=== PATIENT | male | born 1985 | race Caucasian/White ===

== ENCOUNTER 2025-01-22 23:12 | Emergency (ER) | payer MEDICAID, OTHER ==
[~2025-01-22] VITALS: Ht 165.1 cm; Wt 68.2 kg
[~2025-01-22 23:12] MED LIST: ARIP5TAB11; BEN2I; CLON-857; DIVA-93; IBUP100T3; LORA5TAB17; RISP2TAB31; TOPI100T29
[2025-01-22 23:26] VITALS: BP 128/95; PULSE 68; RESP 18; O2SAT 98
--- NOTE | 2025-01-22 23:32 | ED.PDOC ---
Eye-HPI HPI Comments HPI: Poor Historian. 39-year-old male brought in by ambulance from a retirement for evaluation of sore throat. Patient requested milk at the facility and they refused to give it to him so he called 911 and said he is 5150. Patient states he is not homicidal or suicidal. Patient denies any hallucinations. He said the he stated he would rather be on 5150 hold then to be at the facility. Patient has been in group homes all his life for history of developmental delay. Patient prefers to live in the streets. Patient is requesting to leave immediately and go to the streets. It is unclear who has guardianship or [id number] over this patient. Past Medical History: Mild intellectual disability, diabetes, pancreatitis, asthma, IBS, glaucoma, seizures, Past Surgical History: Unknown REVIEW OF SYSTEMS: CONSTITUTIONAL: Denies acute: fever, diaphoresis, chills, HEAD: Denies acute: headache, photophobia Eyes: Denies acute: Double vision, vision loss, eye pain, eye discharge. EARS: Denies acute: tinnitus, hearing loss, ear discharge, ear pain, THROAT: Denies acute: swelling, difficulty swallowing , pain with swallowing, change in voice. NECK: Denies acute: neck pain, neck swelling, stiff neck. HEART: Denies acute : chest pain, palpitations, LUNGS: Denies acute: SOB, wheezing, cough, hemoptysis ABDOMEN: Denies acute: abdominal pain, Nausea, Vomiting, diarrhea, melena , hematemesis, hematochezia SKIN: Denies acute: rash, redness, lesions, itchiness. EXTREMITIES: Denies acute: calf pain, numbness, tingling, weakness, denies pain in extremity. Denies acute: Low back pain. Neuro: Denies acute: focal neurological deficit, motor or sensory focal neurological deficit, tremors, seizure like activity, confusion, dizziness, change in mental status, loss of bowel or bladder function, cauda equina like symptoms. : Denies acute: dysuria, hematuria, flank pain, increase in urinary frequency. PSYCH: Denies acute: hallucination, suicidal ideation, homicidal ideation. PHYSICAL EXAM: General: no acute distress, awake and alert. Head: normocephalic, atraumatic. Neck: supple, trachea is midline, no swelling. Throat: Normal phonation. No erythema, no exudates, no obstruction, no swel ling Eyes:, no erythema, no purulent discharge, no proptosis, no icterus. Heart: regular rate, regular rhythm, no significant murmur appreciated. Lungs: no apparent respiratory distress, Able to speak in full sentences. No wheezing, no rhonchi, no crackles. No stridors Clear to auscultation bilaterally. Abdomen: non tender to palpation, non distended, soft, no guarding, no rebound, + bowel sounds. Neuro: Awake, Alert, oriented to name, self, situation, follows commands GCS=15. Speech is normal. Skin: no petechia, no purpura, no cyanosis, non-pale, not jaundice. Lower extremities: --no - Pitting edema no deformity, no focal swelling, no calf TTP. Makes eye contact. moves all four extremities. Face: no apparent facial droop. Ambulating in the ED independently. ED COURSE: Chief Complaint: Sore Throat Time Seen by MD: 23:29 Reviewed Notes: Nurses Notes, Allergies Allergies: Coded Allergies: NO KNOWN ALLERGIES (Unverified , 06/19/10) Home Meds Reported Medications Benztropine Mesylate (Cogentin) 2 Mg/2 Ml Ij 06/19/10 Ibuprofen (Sm Ibuprofen Jr) 100 Mg Tab 06/19/10 Divalproex Sodium (Depakote Er) 500 Mg Tab 06/19/10 Risperidone (Risperdal M-Tab) 2 Mg Tab 06/19/10 Clonazepam (Clonazepam) 2 Mg Tab 06/19/10 Aripiprazole (Abilify) 5 Mg Tab 06/19/10 Topiramate (Topamax) 100 Mg Tab 06/19/10 Loratadine (Claritin Reditabs) 5 Mg Tab 06/19/10 Information Source: Patient, Emergency Med Personnel Was a procedure done? Was a procedure done?: No EENT DIFF Eye: N/A Ear: N/A Nose: N/A Sore Throat: Epiglottitis, Hand Foot Mouth Disease, Herpangina, Herpetic Stomatitis, Mononeucleosis, Varghese's Angina, Peritonsillar Abscess, Peritonsillar Cellulitis, Pharyngitis, Diptheria, Streptococcal, Viral Pharyngitis, URI X-Ray, Labs, Meds, VS Vital Signs Date Time Temp Pulse Resp B/P (MAP) Pulse Ox O2 Delivery O2 Flow Rate FiO2 01/22/25 23:26 97.5 68 18 128/95 (106) 98 Lab Test 01/23/25 00:20 Range/Units White Blood Count 7.5 4.4-10.8 10^3/uL Red Blood Count 4.37 L 4.5-5.90 10^6/uL Hemoglobin 13.5 13.5-17.5 g/dL Hematocrit 40.2 L 41.0-53.0 % Mean Corpuscular Volume 91.9 80.0-100.0 fL Mean Corpuscular Hemoglobin 30.9 28.0-32.0 pg Mean Corpuscular Hemoglobin Concent 33.6 32.0-36.0 g/dL Red Cell Distribution Width 13.5 11.8-14.3 % Platelet Count 168 140-450 10^3/uL Mean Platelet Volume 8.4 6.9-10.8 fL Neutrophils (%) (Auto) 39.4 37.0-80.0 % Lymphocytes (%) (Auto) 47.7 10.0-50.0 % Monocytes (%) (Auto) 7.2 0.0-12.0 % Eosinophils (%) (Auto) 5.0 0.0-7.0 % Basophils (%) (Auto) 0.7 0.0-2.0 % Neutrophils # (Auto) 3.0 1.6-8.6 10 ^3/uL Lymphocytes # (Auto) 3.6 0.4-5.4 10 ^3/uL Monocytes # (Auto) 0.5 0-1.3 10 ^3/uL Eosinophils # (Auto) 0.4 0-0.8 10 ^3/uL Basophils # (Auto) 0.1 0-0.2 10 ^3/uL Nucleated Red Blood Cells 0.1 % Sodium Level 136 136-145 mmol/L Potassium Level 3.8 3.5-5.1 mmol/L Chloride Level 99 98-107 mmol/L Carbon Dioxide Level 30 20-31 mmol/L Anion Gap 7 5-15 Blood Urea Nitrogen 6 L 9-23 mg/dL Creatinine 0.91 0.700-1.30 mg/dL Glomerular Filtration Rate Calc 110 >90 mL/min BUN/Creatinine Ratio 6.6 L 10.0-20.0 Serum Glucose 164 H 74-106 mg/dL Lactic Acid Level 1.0 0.4-2.0 mmol/L Calcium Level 10.3 8.7-10.4 mg/dL Total Bilirubin 0.5 0.2-1.0 mg/dL Aspartate Amino Transferase (AST) 14 13-40 U/L Alanine Aminotransferase (ALT) 39 7-40 U/L Alkaline Phosphatase 77 46-116 U/L Total Protein 6.4 5.7-8.2 g/dL Albumin 4.6 3.2-4.8 g/dL Time of 1ST Reevaluation: 02:55 Reevaluation 1ST: Resolved Patient Education/Counseling: Diagnosis, Treatment Family Education/Counseling: No Family Present Comments Patient presented with the above HPI.---sore throat---workup was initiated. patient was found with the above mentioned diagnosis. the following medications were ordered: please refer to order lists of meds and tests obtained by myself Dr. Casillas. Patient ED course and VS have been stabilized. Patient has been reassessed in the ED and remained in a stable condition. Patient has been observed in the ED adequate length of time to insure improvement/stability. Escalation of care considered: Consideration of escalation to observation or admission Patient is awaiting social service consult in the morning. The care of this patient was transitioned to Dr. Griggs. Patient was reassessed he is currently asleep and comfortable in no acute distress. Patient denies any homicidal suicidal ideation or hallucinations. We attempted to reach the family members at the phone numbers and they did not answer. We contacted the facility and they said that the patient must be placed in a facility because he is unable to care for himself due to his cognitive/developmental delay. Patient is tolerating p.o. intake well. All the reports of any imaging studies that were ordered by myself were reviewed by myself. Departure 1 Departure Time of Disposition: 01:14 Impression: Primary Impression: Sore throat Disposition: 01 HOME / SELF CARE / HOMELESS Condition: Stable Additional Instructions: Additional discharge instructions: You MUST follow-up with your primary care/family doctor in 1 to 2 days. If you are unable to see your primary care/family doctor, please return to our emergency room for re-assessment and re-evaluation in 1 to 2 days. Return to the emergency room here in our facility or to the nearest ER [facility] if your symptoms change or worsen. CONSULTATIONS: you MUST Follow-up for consultation as soon as possible with: psychiatry and therapist in 1-2 days. Please call for appointment You MUST call the consultants office yourself to make an appointment. You may need to arrange that through your insurance and/or your primary/family doctor. If you are unable to see the professional services consultant in 1 to 2 days, you must return to our emergency room (or any other ER of your choice) for re-assessment and re-evaluat ion. Adequate fluid hydration. Discharged With: Self Critical Care Note Critical Care Time?: No MADELAINE CASILLAS DO Jan 22, 2025 23:32
[2025-01-23 00:34] LABS: Basophils # (auto) 0.1 10 ^3/uL (0-0.2); Basophils % (auto) 0.7 % (0.0-2.0); Eosinophils # (auto) 0.4 10 ^3/uL (0-0.8); Hematocrit 40.2 % (41.0-53.0); Hemoglobin 13.5 g/dL (13.5-17.5); Lymphocytes # (auto) 3.6 10 ^3/uL (0.4-5.4); Lymphocytes % (auto) 47.7 % (10.0-50.0); Mean Corpuscular Hemoglobin 30.9 pg (28.0-32.0); Mean Corpuscular Hgb Conc. 33.6 g/dL (32.0-36.0); Mean Corpuscular Volume 91.9 fL (80.0-100.0); Monocytes # (auto) 0.5 10 ^3/uL (0-1.3); Monocytes % (auto) 7.2 % (0.0-12.0); Neutrophils % (auto) 39.4 % (37.0-80.0); Nucleated Red Blood Cells % 0.1 %; Platelet Count (auto) 168 10^3/uL (140-450); Red Blood Cells 4.37 10^6/uL (4.5-5.90); Red Cell Distribution Width 13.5 % (11.8-14.3); White Blood Cell 7.5 10^3/uL (4.4-10.8)
[2025-01-23 00:51] LABS: Alanine Aminotransferase 39 U/L (7-40); Albumin 4.6 g/dL (3.2-4.8); Alkaline Phosphatase 77 U/L (46-116); Anion Gap 7 (5-15); Aspartate Aminotransferase 14 U/L (13-40); BUN/Creatinine Ratio 6.6 (10.0-20.0); Blood Urea Nitrogen 6 mg/dL (9-23); Calcium 10.3 mg/dL (8.7-10.4); Carbon Dioxide 30 mmol/L (20-31); Chloride 99 mmol/L (98-107); Glucose 164 mg/dL (74-106); Potassium 3.8 mmol/L (3.5-5.1); Sodium 136 mmol/L (136-145)
[2025-01-23 00:52] LABS: Bilirubin, Total 0.5 mg/dL (0.2-1.0); Total Protein 6.4 g/dL (5.7-8.2)
== END 2025-01-23 05:58 | disposition home or self-care (01) ==
LOC: EDBD 23:12 → ER 23:12
DX: J02.9 Acute pharyngitis, unspecified (principal); E11.9 Type 2 diabetes mellitus without complications; J45.909 Unspecified asthma, uncomplicated; F70 Mild intellectual disabilities; Z79.899 Other long term (current) drug therapy
CPT/HCPCS: 36415; 80053; 82947; 83605; 85025

== ENCOUNTER 2025-01-23 13:38 | Emergency (ER) | payer MEDICAID ==
[~2025-01-23] VITALS: Ht 170.2 cm; Wt 73.0 kg
--- NOTE | 2025-01-23 14:09 | ED.PDOC ---
History of Present Illness HPI Comments 39 y/o M, with a history of chronic pancreatitis, DM, bipolar disorder, and schizophrenia, is BIBA for c/o ALOC, today. Per EMS report, bystanders called on patient's behalf after finding him in his current altered state, wandering outside a [employer] parking lot, after being discharged from [facility] ED at around 0700, this morning. He was noted to have been found A&Ox1 and with a blood glucose of 467 on scene. All other vitals were commented to have been stable and within normal limits. Per [facility] ED physician not on 01/22/25, patient has an additional history of mild intellectual disability, pancreatitis, asthma, IBS, glaucoma, seizures and was seen, initially, for c/o sore throat after calling 911 following endorsement call from the senior care he resides in. At time of assessment, patient is a poor historian and admits to residing in a senior care and complains of a headache, currently, due to walking all day, today. He denies any polyphagia, polydipsia, polyuria, weakness, fever, or other associated symptoms at this time. 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 Time Seen by MD: 13:45 Reviewed Notes: Nurses Notes, Tucking Machine Operator Notes, Medications, Allergies Allergies: Coded Allergies: NO KNOWN ALLERGIES (Unverified , 06/19/10) Home Meds Reported Medications Benztropine Mesylate (Cogentin) 2 Mg/2 Ml Ij 06/19/10 Ibuprofen (Sm Ibuprofen Jr) 100 Mg Tab 06/19/10 Divalproex Sodium (Depakote Er) 500 Mg Tab 06/19/10 Risperidone (Risperdal M-Tab) 2 Mg Tab 06/19/10 Clonazepam (Clonazepam) 2 Mg Tab 06/19/10 Aripiprazole (Abilify) 5 Mg Tab 06/19/10 Topiramate (Topamax) 100 Mg Tab 06/19/10 Loratadine (Claritin Reditabs) 5 Mg Tab 06/19/10 Information Source: Patient, Emergency Med Personnel, [facility] Medical Record Mode of Arrival: EMS Severity: Moderate Timing: Hours Duration: Since onset Prehospital treatment: 12 Lead EKG, Accucheck, Biometrics Analyst Past Medical History PAST MEDICAL HISTORY: Asthma, DM, Kidney Stones, Schizophrenia Past Medical History (Other): mild intellectual disability, chronic pancreatitis, IBS, glaucoma, seizures, bipolar disorder, TBI Surgical History: Appendectomy Surgical History (Other): bilateral knee surgery Family History Family History: Unknown Social History Smoker: Non-Smoker Alcohol: Denies ETOH Use Drugs: Denies Drug Use Lives In: Other (senior care ) Neurological: reports: headache, others (ALOC) Endocrine: reports: others (hyperglycemia ) All Other Systems: Reviewed and Negative (negative unless otherwise stated above or in HPI) Physical Exam General Appearance: Mild Distress HEENT: Normal ENT Inspection, Pharynx Normal, TMs Normal Neck: Full Range of Motion, Non-Tender, Normal, Normal Inspection Respiratory: Chest Non-Tender, Lungs Clear, No Accessory Muscle Use, No Respiratory Distress, Normal Breath Sounds Cardiovascular: No Edema, No JVD, No Murmur, No Gallop, Normal Peripheral Pulses, Regular Rate/Rhythm Breast Exam: Deferred Gastrointestinal: No Organomegaly, Non Tender, No Pulsatile Mass, Normal Bowel Sounds, Soft Genitalia: Deferred Pelvic: Deferred Rectal: Deferred Extremities: No calf tenderness, Normal capillary refill, Normal inspection, Normal range of motion, Non-tender, No pedal edema Musculoskeletal : Apperance: Normal Neurologic: Alert, bone drier operator II-XII nml as Tested, No Motor Deficits, Normal Affect, Normal Mood, No Sensory Deficits Cerebellar Function: Normal Reflexes: Normal Skin: Dry, Normal Color, Warm Lymphatic: No Adenopathy Was a procedure done? Was a procedure done?: No EKG EKG : Pulse Rate (adult): 90 [place]: Normal Cardiac Rhythm: NSR ST: Nonsp Differential Dx Considerations may include: hyperglycemia, medication noncompliance, encephalopathy, schizophrenia, bipolar disorder, electrolyte imbalance, heat exhaustion X-Ray, Labs, Meds, VS Vital Signs Date Time Temp Pulse Resp B/P (MAP) Pulse Ox O2 Delivery O2 Flow Rate FiO2 01/23/25 14:27 98.1 94 18 129/78 (95) 99 98.1 01/23/25 14:27 94 18 94 Room Air* 0 21 01/23/25 14:11 98.0 97 18 127/88 (101) 99 01/23/25 13:46 90 Lab Test 01/23/25 14:05 Range/Units White Blood Count 9.5 # 4.4-10.8 10^3/uL Red Blood Count 3.99 L 4.5-5.90 10^6/uL Hemoglobin 12.8 L 13.5-17.5 g/dL Hematocrit 36.7 L 41.0-53.0 % Mean Corpuscular Volume 92.0 80.0-100.0 fL Mean Corpuscular Hemoglobin 32.0 28.0-32.0 pg Mean Corpuscular Hemoglobin Concent 34.8 32.0-36.0 g/dL Red Cell Distribution Width 13.5 11.8-14.3 % Platelet Count 180 140-450 10^3/uL Mean Platelet Volume 8.3 6.9-10.8 fL Neutrophils (%) (Auto) 73.2 37.0-80.0 % Lymphocytes (%) (Auto) 18.2 10.0-50.0 % Monocytes (%) (Auto) 8.0 0.0-12.0 % Eosinophils (%) (Auto) 0.3 0.0-7.0 % Basophils (%) (Auto) 0.3 0.0-2.0 % Neutrophils # (Auto) 7.0 1.6-8.6 10 ^3/uL Lymphocytes # (Auto) 1.7 0.4-5.4 10 ^3/uL Monocytes # (Auto) 0.8 0-1.3 10 ^3/uL Eosinophils # (Auto) 0 0-0.8 10 ^3/uL Basophils # (Auto) 0 0-0.2 10 ^3/uL Nucleated Red Blood Cells 0.0 % Sodium Level 134 L 136-145 mmol/L Potassium Level 4.5 3.5-5.1 mmol/L Chloride Level 99 98-107 mmol/L Carbon Dioxide Level 27 20-31 mmol/L Anion Gap 8 5-15 Blood Urea Nitrogen 10 9-23 mg/dL Creatinine 1.18 0.700-1.30 mg/dL Glomerular Filtration Rate Calc 81 >90 mL/min BUN/Creatinine Ratio 8.5 L 10.0-20.0 Serum Glucose 414 #*H 74-106 mg/dL Calcium Level 9.2 8.7-10.4 mg/dL Plasma/Serum Blood Alcohol < 3.0 <10 mg/dL We ordered a CT scan of the head because the patient was somewhat confused. The CT scan of the head is negative at this time The patient's alcohol level is negative The glucose is 414 indicating uncontrolled diabetes The CBC is within normal limits except for mild anemia with a hemoglobin of 12.8 We did order some medication for the elevated blood sugar but the patient has eloped from the department's. He pulled out his IV and then walks with the out of the emergency department's. We are going to attempt to contact him to return secondary to the hyperglycemia. Images Reviewed?: Images reviewed and evaluated by me Time of 1ST Reevaluation: 14:15 Reevaluation 1ST: Unchanged Time of 2ND Reevaluation: 14:50 Reevaluation 2ND: The patient was eloped fr Patient Education/Counseling: Diagnosis, Treatment, Prognosis Family Education/Counseling: No Family Present Departure 1 Departure Time of Disposition: 14:50 Impression: Primary Impression: Hyperglycemia Additional Impression: Generalized weakness Disposition: 07 LEFT AWOL/ELOPED Condition: Fair Critical Care Note Critical Care Time?: No Stability Stability form required: No Heart Score Heart Score: Heart Score Response (Comments) Value History N/A 0 EKG N/A 0 Age N/A 0 Risk Factors N/A 0 Troponin N/A 0 Total 0 I personally scribed for STACIA OROURKE MD ([email or web address]) on 01/23/25 at 14:09. Electronically submitted by Maximo Tan ([email or web address]). STACIA OROURKE MD Jan 23, 2025 14:09
[2025-01-23 14:11] LABS: Basophils # (auto) 0 10 ^3/uL (0-0.2); Basophils % (auto) 0.3 % (0.0-2.0); Eosinophils # (auto) 0 10 ^3/uL (0-0.8); Eosinophils % (auto) 0.3 % (0.0-7.0); Hematocrit 36.7 % (41.0-53.0); Hemoglobin 12.8 g/dL (13.5-17.5); Lymphocytes # (auto) 1.7 10 ^3/uL (0.4-5.4); Lymphocytes % (auto) 18.2 % (10.0-50.0); Mean Corpuscular Hgb Conc. 34.8 g/dL (32.0-36.0); Monocytes # (auto) 0.8 10 ^3/uL (0-1.3); Neutrophils % (auto) 73.2 % (37.0-80.0); Platelet Count (auto) 180 10^3/uL (140-450); Red Blood Cells 3.99 10^6/uL (4.5-5.90); Red Cell Distribution Width 13.5 % (11.8-14.3); White Blood Cell 9.5 10^3/uL (4.4-10.8)
[2025-01-23 14:19] LABS: Chloride 99 mmol/L (98-107); Potassium 4.5 mmol/L (3.5-5.1)
[2025-01-23 14:20] LABS: Anion Gap 8 (5-15); Carbon Dioxide 27 mmol/L (20-31)
[2025-01-23 14:21] LABS: Calcium 9.2 mg/dL (8.7-10.4)
[2025-01-23 14:22] LABS: Sodium 134 mmol/L (136-145)
[2025-01-23 14:26] LABS: BUN/Creatinine Ratio 8.5 (10.0-20.0); Blood Urea Nitrogen 10 mg/dL (9-23)
[2025-01-23 14:27] VITALS: BP 129/78; PULSE 94; RESP 18; TEMP 98.1; O2SAT 94
--- NOTE | 2025-01-23 14:37 | DVH ---
EXAM: CT HEAD WITHOUT CONTRAST HISTORY: aloc COMPARISON: None TECHNIQUE: Axial images were obtained and reformatted in coronal and sagittal planes. All CT scans at this medical facility are performed using dose modulation techniques as appropriate t o a performed exam including the following: Automated exposure control was utilized; adjustment of th e MA and/or KV according to patient size; and use of iterative reconstruction technique. CT Dose: CTDI volume is 52 mGy. Dose-length product is 1511.8 mGy*cm FINDINGS: Supratentorial Region: No evidence for large acute territorial ischemia. No intracranial hemorrhage is noted. Posterior Fossa: No acute abnormality. Brainstem: Unremarkable. Sellar/Suprasellar Region: Unremarkable. Ventricles, Cisterns, Sulci: Age-appropriate. Orbits: Unremarkable. Paranasal Sinuses: Unremarkable. Mastoid Air Cells: Unremarkable. Vasculature: Unremarkable. Bones/Soft Tissues: No acute abnormality. Other: None. IMPRESSION: 1. No acute intracranial process.
--- NOTE | 2025-01-23 14:38 | ECG ---
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
[2025-01-23 14:43] LABS: Blood Alcohol < 3.0 mg/dL (<10)
[2025-01-23 14:46] LABS: Glucose 414 mg/dL (74-106)
[2025-01-23 14:51] VITALS: PULSE 90
== END 2025-01-23 14:52 | disposition left against medical advice (07) ==
LOC: EDBD 13:38 → ER 13:44
DX: E11.65 Type 2 diabetes mellitus with hyperglycemia (principal); R53.1 Weakness; J45.909 Unspecified asthma, uncomplicated; Z90.49 Acquired absence of other specified parts of digestive tract; Z79.899 Other long term (current) drug therapy; Z79.1 Long term (current) use of non-steroidal anti-inflammatories (NSAID)
CPT/HCPCS: 36415; 70450; 80048; 80320; 85025; 93005

== ENCOUNTER 2025-01-23 18:05 | Emergency (ER) | payer MEDICAID ==
[~2025-01-23] VITALS: Ht 175.3 cm; Wt 65.8 kg
[2025-01-23] MEDS ORDERED: SODIUM CHLORIDE 0.9% 1,000 ML IV ONE (18:15)
[2025-01-23 18:42] VITALS: BP 146/85; PULSE 125; RESP 18; O2SAT 98
--- NOTE | 2025-01-23 18:45 | ED.PDOC ---
History of Present Illness HPI Comments 39 y/o M presents with bed rubber for c/o hyperglycemia, today. Per bed rubber, patient presents to the ED, again, after eloping, earlier, after being brought in for initial complaint of ALOC by EMS. Per previous HPI note: 39 y/o M, with a history of chronic pancreatitis, DM, bipolar disorder, and schizophrenia, is BIBA for c/o ALOC, today. Per EMS report, bystanders called on patient's behalf after finding him in his current altered state, wandering outside a [employer] parking lot, after being discharged from [facility] ED at around 0700, this morning. He was noted to have been found A&Ox1 and with a blood glucose of 467 on scene. All other vitals were commented to have been stable and within normal limits. Per [facility] ED physician not on 01/22/25, patient has an additional history of mild intellectual disability, pancreatitis, asthma, IBS, glaucoma, seizures and was seen, initially, for c/o sore throat after calling 911 following endorsement call from the care home he resides in. At time of assessment, patient is a poor historian and admits to residing in a care home and complains of a headache, currently, due to walking all day, today. He denies any polyphagia, polydipsia, polyuria, weakness, fever, or other associated symptoms at this time. Further history cannot be obtained, due to patient being a poor historian and absence of family/bed rubber historians. Time Seen by MD: 18:30 Primary Care Provider: UNKNOWN Reviewed Notes: Nurses Notes, Medications, Allergies Allergies: Coded Allergies: NO KNOWN ALLERGIES (Unverified , 06/19/10) Home Meds Reported Medications Benztropine Mesylate (Cogentin) 2 Mg/2 Ml Ij 06/19/10 Ibuprofen (Sm Ibuprofen Jr) 100 Mg Tab 06/19/10 Divalproex Sodium (Depakote Er) 500 Mg Tab 06/19/10 Risperidone (Risperdal M-Tab) 2 Mg Tab 06/19/10 Clonazepam (Clonazepam) 2 Mg Tab 06/19/10 Aripiprazole (Abilify) 5 Mg Tab 06/19/10 Topiramate (Topamax) 100 Mg Tab 06/19/10 Loratadine (Claritin Reditabs) 5 Mg Tab 06/19/10 Information Source: Patient, Legal Guardian (bed rubber) Mode of Arrival: Ambulatory Severity: Moderate Timing: Hours Duration: Since onset Prehospital treatment: None Past Medical History PAST MEDICAL HISTORY: Asthma, DM, Kidney Stones, Schizophrenia Past Medical History (Other): glaucoma, seizures, bipolar disorder, TBI Surgical History: Appendectomy Family History Family History: Unknown Social History Smoker: Non-Smoker Alcohol: Denies ETOH Use Drugs: Denies Drug Use Lives In: Other (care home ) Constitutional: denies: chills, diaphoresis, fatigue, fever, malaise, sweats, weakness, others EENTM: denies: blurred vision, double vision, ear bleeding, ear discharge, ear drainage, ear pain, ear ringing, eye pain, eye redness, hearing loss, mouth pain, mouth swelling, nasal discharge, nose bleeding, nose congestion, nose pain, photophobia, tearing, throat pain, throat swelling, voice changes, others Respiratory: denies: cough, hemoptysis, orthopnea, SOB at rest, shortness of breath, SOB with excertion, stridor, wheezing, others Cardiovascular: denies: chest pain, dizzy spells, diaphoresis, Dyspnea on exertion, edema, irregular heart beat, left arm pain, lightheadedness, palpitations, PND, syncope, others Gastrointestinal: denies: abdomen distended, abdominal pain, blood streaked bowels, constipated, diarrhea, dysphagia, difficulty swallowing, hematemesis, melena, nausea, poor appetite, poor fluid intake, rectal bleeding, rectal pain, vomiting, others Genitourinary: denies: burning, dysuria, flank pain, frequency, hematuria, incontinence, penile discharge, penile sore, pain, testicle pain, testicle swelling, urgency, others Neurological: reports: others (ALOC); denies: dizziness, fainting, headache, left sided numbness, left sided weakness, numbness, paresthesia, pre-existing deficit, right sided numbness, right sided weakness, seizure, speech problems, tingling, tremors, weakness Musculoskeletal: denies: back pain, gout, joint pain, joint swelling, muscle pain, muscle stiffness, neck pain, others Integumetry: denies: bruises, change in color, change in hair/nails, dryness, laceration, lesions, lumps, rash, wounds, others Allergic/Immunocompromised: denies: Difficulty Healing, Frequent Infections, H emmanuelle, Itching, others Hematologic/Lymphatic: denies: anemia, blood clots, easy bleeding, easy bruising, swollen glands, others Endocrine: reports: others (hyperglycemia ); denies: excessive hunger, excessive sweating, excessive thirst, excessive urination, flushing, intolerance to cold, intolerance to heat, unexplained weight gain, unexplained weight loss Psychiatric: denies: anxiety, bipolar disorder, depression, hopeless, panic disorder, schizophrenia, sleepless, suicidal, others All Other Systems: Reviewed and Negative (negative unless otherwise stated above or in HPI) Physical Exam General Appearance: Mild Distress, Normal HEENT: Normal ENT Inspection, Pharynx Normal, TMs Normal Neck: Full Range of Motion, Non-Tender, Normal, Normal Inspection Respiratory: Chest Non-Tender, Lungs Clear, No Accessory Muscle Use, No Respiratory Distress, Normal Breath Sounds Cardiovascular: No Edema, No JVD, No Murmur, No Gallop, Normal Peripheral Pulses, Regular Rate/Rhythm Breast Exam: Deferred Gastrointestinal: No Organomegaly, Non Tender, No Pulsatile Mass, Normal Bowel Sounds, Soft Genitalia: Deferred Pelvic: Deferred Rectal: Deferred Extremities: No calf tenderness, Normal capillary refill, Normal inspection, Normal range of motion, Non-tender, No pedal edema Musculoskeletal : Apperance: Normal Neurologic: Alert, inspector cold working II-XII nml as Tested, No Motor Deficits, Normal Affect, Normal Mood, No Sensory Deficits Cerebellar Function: Normal Reflexes: Normal Skin: Dry, Normal Color, Warm Lymphatic: No Adenopathy Was a procedure done? Was a procedure done?: No Differential Dx Considerations may include: hyperglycemia, medication noncompliance, encephalopathy, schizophrenia, bipolar disorder, electrolyte imbalance, heat exhaustion X-Ray, Labs, Meds, VS Vital Signs Date Time Temp Pulse Resp B/P (MAP) Pulse Ox O2 Delivery O2 Flow Rate FiO2 01/23/25 18:42 98.1 125 18 146/85 (105) 98 Lab Test 01/23/25 18:38 01/23/25 18:37 Range/Units POC Glucose 302 H 320 H 70-106 mg/dl We ordered a CT scan of the head because the patient was somewhat confused. The CT scan of the head is negative at this time The patient's alcohol level is negative The glucose is 414 indicating uncontrolled diabetes The CBC is within normal limits except for mild anemia with a hemoglobin of 12.8 We did order some medication for the elevated blood sugar but the patient has eloped from the department's. He pulled out his IV and then walks with the out of the emergency department's. We are going to attempt to contact him to return secondary to the hyperglycemia. The patient will be admitted at this time Time of 1ST Reevaluation: 19:00 Reevaluation 1ST: Unchanged Patient Education/Counseling: Diagnosis, Treatment, Prognosis Family Education/Counseling: Diagnosis, Treatment, Prognosis Departure 1 Departure Time of Disposition: 20:00 Impression: Primary Impression: Uncontrolled diabetes mellitus Qualified Codes: E13.65 - Other specified diabetes mellitus with hyperglycemia Disposition: ADMITTED INPATIENT Admit to: Med Surg Condition: Fair Critical Care Note Critical Care Time?: No Stability Stability form required: Yes Unstable for transfer: Telemetry monitoring (Telemetry monitoring required), ED Physician Assesment (Clinical assesment) Heart Score Heart Score: Heart Score Response (Comments) Value History N/A 0 EKG N/A 0 Age N/A 0 Risk Factors N/A 0 Troponin N/A 0 Total 0 I personally scribed for STACIA OROURKE MD ([email or web address]) on 01/23/25 at 18:45. Electronically submitted by Maximo Tan ([email or web address]). STACIA OROURKE MD Jan 23, 2025 18:45
== END 2025-01-23 20:43 | disposition left against medical advice (07) ==
LOC: EEVIPCON 18:05 → ER 18:05
DX: E11.65 Type 2 diabetes mellitus with hyperglycemia (principal); J45.909 Unspecified asthma, uncomplicated; F20.9 Schizophrenia, unspecified; F31.9 Bipolar disorder, unspecified; R41.82 Altered mental status, unspecified; Z87.442 Personal history of urinary calculi; Z90.49 Acquired absence of other specified parts of digestive tract
CPT/HCPCS: 82962

== ENCOUNTER 2025-04-10 02:28 | Emergency (ER) | payer MEDICAID ==
[~2025-04-10] VITALS: Ht 175.3 cm; Wt 72.7 kg
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
[2025-04-10 08:07] VITALS: BP 123/95; TEMP 97.1
[2025-04-10 08:09] VITALS: PULSE 82; RESP 18; O2SAT 97
== END 2025-04-10 08:11 | disposition home or self-care (01) ==
LOC: ER 02:28 → EDBD 02:28 → ER 08:11
DX: S60.511A Abrasion of right hand, initial encounter (principal); J45.909 Unspecified asthma, uncomplicated; E11.9 Type 2 diabetes mellitus without complications; F20.9 Schizophrenia, unspecified; Z90.49 Acquired absence of other specified parts of digestive tract; Z87.442 Personal history of urinary calculi; X58.XXXA Exposure to other specified factors, initial encounter; Y93.89 Activity, other specified; Y92.89 Other specified places as the place of occurrence of the external cause; Y99.8 Other external cause status
CPT/HCPCS: 82947